=== PATIENT | male | born 1935 | race Caucasian/White ===

== ENCOUNTER 2020-03-04 13:42 | Observation (INO) | payer MEDICARE, BC ==
[~2020-03-04] VITALS: Ht 165.1 cm; Wt 65.0 kg
[~2020-03-04 13:42] MED LIST: ASPIRIN E.C. 8181 MG PO; HYTRIN 2MG CAPSU2 MG PO; LUTEIN 15 MG-0.1 SGL PO; ZANTAC 150MG T150 MG PO; ZOCOR 20MG20 MG PO
[2020-03-04] MEDS ORDERED: PRINIVIL20 MG PO (13:57)
[2020-03-04] MEDS ORDERED: SYNTHROID 0.0.025 MG PO (14:00)
[2020-03-04] MEDS ORDERED: ZEBETA 5MG5 MG PO (14:00)
[2020-03-04 14:18] LABS: COLLECTION METHOD CLEAN CATCH
[2020-03-04 14:21] LABS: BASO # 0.1 (0.0-0.2); BASO % 0.5 % (0.0-2.0); EOS % 0.4 % (0-4.0); GRAN # 8.8 (1.4-6.5); GRAN % 82.7 % (42.2-75.2); HEMOGLOBIN 11.8 g/dl (13.5-18.0); LYMPH # 1.1 (1.2-3.4); LYMPH % 10.5 % (20.0-51.0); MEAN CELL VOLUME 86 fl (80.0-100.0); MEAN CORPUSCULAR HEMOGLOBIN 28 pg (27.0-31.0); MEAN CORPUSCULAR HGB CONC 33 g/dl (33.0-37.0); MEAN PLATELET VOLUME 10.5 fl (7.4-10.4); MONO # 0.6 (0.1-0.6); MONO % 5.6 % (1.7-9.3); PLATELET COUNT 136 K/mm3 (130-400); RED BLOOD COUNT 4.15 M/mm3 (4.20-5.60)
[2020-03-04 14:22] LABS: HEMATOCRIT 35.6 % (42.0-52.0)
[2020-03-04 14:27] LABS: HYALINE CAST >12 /lpf; MUCOUS Present /lpf; PH 6 (5-8); SQUAMOUS EPITHELIAL 0-2 /hpf; URINE APPEARANCE Clear; URINE BACTERIA None Seen /hpf; URINE BILIRUBIN Negative (NEGATIVE); URINE BLOOD 1+ (NEGATIVE); URINE COLOR Yellow; URINE GLUCOSE Negative (NEGATIVE); URINE KETONE Trace (NEGATIVE); URINE LEUKOCYTE ESTERASE Negative (NEGATIVE); URINE NITRATE Negative (NEGATIVE); URINE PROTEIN(semi-quant) Negative (NEGATIVE); URINE RBC 0-2 /hpf
[2020-03-04 14:30] LABS: ALANINE AMINOTRANSFERASE 16 U/L (4-49); ALBUMIN 3.5 gm/dL (3.5-5.0); ALKALINE PHOSPHATASE 40 U/L (50-136); ANION GAP 5 mmol/L (7-16); AST,SGOT 32 U/L (15-37); BILIRUBIN,TOTAL 0.6 mg/dL (0.0-1.0); BLOOD UREA NITROGEN 18 mg/dL (9-20); C-REACTIVE PROTEIN < 0.5 mg/dL (0.0-0.9); CALCIUM 8.3 mg/dL (8.4-10.2); CARBON DIOXIDE 26 mmol/L (22-30); CHLORIDE 104 mmol/L (98-107); CREATININE, serum 1.47 (0.66-1.25); GLUCOSE 92 mg/dL (74-106); POTASSIUM 4.4 mmol/L (3.4-5.0); SODIUM 135 mmol/L (137-145); TOTAL PROTEIN 6.4 gm/dL (6.4-8.2)
[2020-03-04 14:40] LABS: TROPONIN-I < 0.012 ng/mL (0.000-0.035)
[2020-03-04 14:52] VITALS: BP 177/76; PULSE 55
[2020-03-04 18:22] LABS: TROPONIN-I 3 HR POST INITIAL < 0.012 ng/mL (0.000-0.034)
[2020-03-04 18:26] LABS: PROLACTIN 8.9 ng/mL (3.7-17.9)
--- NOTE | 2020-03-04 19:07 | NUR ---
Pt up to room 343, pt is alert, sitting at EOB. Bedside report given to VLADISLAV Cox. LWR INT IV. Pt to have CT, radiology will be up shortly to get patient. Pt on room air, breathing even and unlabored. Pt on tele. Pt stated he had been sitting in wet pants since this morning, episode of incontinence when he had a syncopal episode this morning at home. Provided with briefs and bag for pt to change. Pt requesting food, dietary called, dinner will be delivered. No further concerns at this time.
--- NOTE | 2020-03-04 20:00 | NUR ---
Pt in bed, is alert and oriented x4. Has SL to left forearm without redness or swelling. On telemetry in NSR. Admission questions completed.
--- NOTE | 2020-03-04 20:22 | NUR ---
REPORT GIVEN TO ONCOMING SHIFT.
[2020-03-04 20:40] VITALS: BP 178/61; PULSE 60; TEMP 97.9
--- NOTE | 2020-03-04 22:00 | NUR ---
IVF infusing without problem to left forearm. Neuro checks have been WNL. Denies needs and is ready for bed. Voiding without problem.
[2020-03-05 00:13] VITALS: BP 136/63; PULSE 97; TEMP 98
[2020-03-05 00:31] VITALS: BP 156/63; PULSE 64; TEMP 98.2
--- NOTE | 2020-03-05 04:00 | NUR ---
Has denied feeling dizzy when up this shift. SBA with activity.
[2020-03-05 04:10] VITALS: BP 153/57; PULSE 61; TEMP 98.1
[2020-03-05 05:44] LABS: BASO # 0.1 (0.0-0.2); BASO % 0.7 % (0.0-2.0); EOS # 0.1 (0.0-0.7); EOS % 0.9 % (0-4.0); GRAN # 4.6 (1.4-6.5); GRAN % 68.1 % (42.2-75.2); HEMOGLOBIN 11.4 g/dl (13.5-18.0); LYMPH # 1.3 (1.2-3.4); LYMPH % 19.7 % (20.0-51.0); MEAN CELL VOLUME 86 fl (80.0-100.0); MEAN CORPUSCULAR HEMOGLOBIN 28 pg (27.0-31.0); MEAN CORPUSCULAR HGB CONC 33 g/dl (33.0-37.0); MONO # 0.7 (0.1-0.6); MONO % 10.5 % (1.7-9.3); PLATELET COUNT 143 K/mm3 (130-400); RED BLOOD COUNT 4.07 M/mm3 (4.20-5.60); REDCELL DISTRIBUTION WIDTH-CV 13.1 % (11.5-14.5)
[2020-03-05 05:46] LABS: HEMATOCRIT 35.1 % (42.0-52.0)
[2020-03-05 05:57] LABS: CREATININE, serum 2.19 (0.66-1.25); POTASSIUM 4.1 mmol/L (3.4-5.0)
[2020-03-05 06:09] LABS: TROPONIN-I 0.013 ng/mL (0.000-0.035)
[2020-03-05 06:27] LABS: TSH w REFLEX 2.91 uIU/mL (0.465-4.680)
[2020-03-05 07:59] VITALS: BP 143/50; PULSE 69; TEMP 98.8
--- NOTE | 2020-03-05 08:18 | NUR ---
Pt assessment completed and charted. Medications administered per DEC. Pt sitting in bed, finished breakfast. VSS. Pt denies any pain, dizziness, SOB, N/V/D, abdominal pain. Pt on room air, breathing even and unlabored. Pt on tele, no complications, occasional bradycardia. LFA IV w/ NS@ 75ml/hr running w/o complications. Pt independent in room. No concerns expressed at this time. Call light within reach.
[2020-03-05 11:11] VITALS: BP 138/59; PULSE 56; TEMP 99
--- NOTE | 2020-03-05 11:35 | NUR ---
TRISTA met with the patient to complete intitial intake. The patient lives with his Maureen in [place] with [facility]. The patient has canes at home but does not need them to ambulate. The patient is independent with ADLs. The patient's PCP is Dr. Arrington and patient receives medications from [facility]. The patient does not have advanced directives in the EMR but states they are completed. The patient plans to return home at discharge. There are no additional needs at this time.
[2020-03-05] MEDS ORDERED: ZEBETA 5MG5 MG PO (12:16)
[2020-03-05] MEDS ORDERED: NORVASC 5MG5 MG/TAB PO (12:16)
--- NOTE | 2020-03-05 14:49 | NUR ---
Pt had loop recorder placed to mid chest, covered w/ gauze and paper tape, CDI. Pt denies any pain or dizziness. Discharge instructions discussed and reviewed with patient who verbalized understanding. All questions encouraged and answered. No further needs. LFA INT IV dc'd w/ catheter tip intact. Patient to call to tack picker, will notify staff when ready to be escorted out.
== END 2020-03-05 15:10 | disposition home or self-care (01) ==
LOC: COL.ER 13:42 → SURG 15:04
PROVIDERS: Emergency Medicine; Physician Assistant; ADMIT Hospitalist
DX: R55 Syncope and collapse (principal); R42 Dizziness and giddiness; N17.9 Acute kidney failure, unspecified; I12.9 Hypertensive chronic kidney disease with stage 1 through stage 4 chronic kidney disease, or unspecified chronic kidney disease; N18.3 Chronic kidney disease, stage 3 (moderate); E78.5 Hyperlipidemia, unspecified; H35.30 Unspecified macular degeneration; E03.9 Hypothyroidism, unspecified; I08.0 Rheumatic disorders of both mitral and aortic valves; Z87.891 Personal history of nicotine dependence; Z79.899 Other long term (current) drug therapy; Z88.7 Allergy status to serum and vaccine
CPT/HCPCS: G0378; J1644; J7030

== ENCOUNTER 2020-04-09 11:36 | Day surgery (SDC) | payer BC ==
[2020-04-09] VITALS (12 sets, daily range): BP systolic 132–205; BP diastolic 47–94; PULSE 64–83; TEMP 97.4–98.1
[~2020-04-09] VITALS: Ht 165.1 cm; Wt 62.4 kg
[~2020-04-09 11:36] MED LIST changes: +NORVASC 5MG5 MG/TAB PO; +PRINIVIL20 MG PO; +SYNTHROID 0.0.025 MG PO; +ZEBETA 5MG5 MG PO
[2020-04-09 12:15] LABS: HEMATOCRIT 41.9 % (42.0-52.0); MEAN CELL VOLUME 85 fl (80.0-100.0); MEAN CORPUSCULAR HEMOGLOBIN 28 pg (27.0-31.0); MEAN CORPUSCULAR HGB CONC 33 g/dl (33.0-37.0); MEAN PLATELET VOLUME 11.1 fl (7.4-10.4); PLATELET COUNT 154 K/mm3 (130-400); RED BLOOD COUNT 4.93 M/mm3 (4.20-5.60); REDCELL DISTRIBUTION WIDTH-CV 12.7 % (11.5-14.5)
[2020-04-09 13:08] LABS: CALCIUM 8.9 mg/dL (8.4-10.2); CREATININE, serum 1.67 (0.66-1.25); POTASSIUM 4.7 mmol/L (3.4-5.0)
[2020-04-09 13:24] LABS: PROTHROMBIN TIME 11.7 SECONDS (9.7-12.8)
--- NOTE | 2020-04-09 14:10 | NUR ---
SEE MERGE DOCUMENTATION FOR MEDICATION ADMINISTRATION AND INTRA/POST PROCEDURE SEDATION ASSESSMENTS.
--- NOTE | 2020-04-09 19:19 | NUR ---
Patient arrived to floor at 1545 via stretcher, is at bedside. Respirations are even and nonlabored. Dressings are CDI, ice was applied and apap administered. Patient was given water and sandwich box. He is alert and oriented. Lungs are clear, heart reg, bowel sounds active. Pulses, pedal and radial are +2. Did void in urinal and urine is clear and yellow. Left arm is restricted in a sling. Call light and personal items are within reach.
--- NOTE | 2020-04-09 20:30 | NUR ---
Initial shift assessment done- pacemaker site dressing clean dry and intact, no drainage or bruising noted, loop recorder removal site dressing dry and intact, pt has on left arm slight- also ice to pacemaker site. Denies pain at this time, Tele on. Voiding clear light yellow urine per urinal.Did give an HS snack-
[2020-04-10 03:00] VITALS: BP 129/56; PULSE 62; TEMP 97.5
--- NOTE | 2020-04-10 06:08 | NUR ---
Slept well all night- denies pain, Pacemaker dressing dry, intact/ VSS
--- NOTE | 2020-04-10 07:30 | NUR ---
Received report from offgoing shift. Patient is awake and alert in bed watching TV. Call light and personal items are within reach.
[2020-04-10 07:44] VITALS: BP 138/51; PULSE 60; TEMP 97.9
[2020-04-10] MEDS ORDERED: CEPHALEXIN500 M1 PO ×2 (09:40→11:01)
[2020-04-10] MEDS ORDERED: TYLENOL 325MG325 MG PO (09:41)
--- NOTE | 2020-04-10 12:27 | NUR ---
First visit from the title investigator. No needs right now.
== END 2020-04-10 11:10 | disposition home or self-care (01) ==
LOC: COL.CAR 11:36 → MEDICAL 16:40 → COL.CAR 04-10 11:10
PROVIDERS: Internal Medicine Cardiovascular Disease
DX: I49.5 Sick sinus syndrome (principal); R55 Syncope and collapse; I08.0 Rheumatic disorders of both mitral and aortic valves; I12.9 Hypertensive chronic kidney disease with stage 1 through stage 4 chronic kidney disease, or unspecified chronic kidney disease; N18.9 Chronic kidney disease, unspecified; E78.5 Hyperlipidemia, unspecified; E78.2 Mixed hyperlipidemia; K21.9 Gastro-esophageal reflux disease without esophagitis; Z88.7 Allergy status to serum and vaccine; Z95.818 Presence of other cardiac implants and grafts; Z79.899 Other long term (current) drug therapy
CPT/HCPCS: OP; C1785; C1894; C1898; J0690; J2250; J3010; J7030; Q9967

== ENCOUNTER 2022-06-23 11:01 | Outpatient (CLI) | payer BC ==
[~2022-06-23] VITALS: Ht 165.2 cm; Wt 60.3 kg
[~2022-06-23 11:01] MED LIST changes: +CEPHALEXIN500 M1 PO; +TYLENOL 325MG325 MG PO
[2022-06-23] MEDS ORDERED: NORVASC2.5 MG PO (12:12)
[2022-06-23 12:17] VITALS: BP 160/71; PULSE 77; TEMP 98.2
[2022-06-23 12:37] LABS: CALCIUM 9.1 mg/dL (8.4-10.2); CREATININE, serum 1.92 mg/dL (0.72-1.25); POTASSIUM 4.4 mmol/L (3.5-4.5); PROTHROMBIN TIME 11.9 SECONDS (9.7-12.8)
[2022-06-23 12:55] LABS: BASO % 0.6 % (0.0-2.0); EOS % 0.2 % (0.0-4.0); GRAN # 5.3 K/mm3 (1.4-6.5); GRAN % 83.4 % (42.2-75.2); HEMOGLOBIN 12.1 g/dl (13.5-18.0); LYMPH # 0.4 K/mm3 (1.2-3.4); LYMPH % 5.7 % (20.0-51.0); MEAN CELL VOLUME 87 fl (80.0-100.0); MEAN CORPUSCULAR HEMOGLOBIN 29 pg (27-31); MEAN CORPUSCULAR HGB CONC 33 g/dl (33.0-37.0); MEAN PLATELET VOLUME 10.6 fl (7.4-10.4); MONO # 0.6 K/mm3 (0.1-0.6); MONO % 9.9 % (1.7-9.3); PLATELET COUNT 132 K/mm3 (130-400); RED BLOOD COUNT 4.24 M/mm3 (4.20-5.60); REDCELL DISTRIBUTION WIDTH-CV 13.3 % (11.5-14.5)
[2022-06-23 12:56] LABS: HEMATOCRIT 36.7 % (42.0-52.0)
[2022-06-23 13:15] VITALS: BP 127/70; PULSE 82
--- NOTE | 2022-06-23 13:15 | NUR ---
RECIEVED REPORT FROM JULIEN LOOMIS, PT IS AWAKE AND ALERT, HOB ELEVATED, FAMILY NOW IN ROOM. CALL LIGHT IN REACH, NO C/O, TAKES SPRITE TO DRINK
[2022-06-23 13:30] VITALS: BP 149/71; PULSE 78
[2022-06-23 13:45] VITALS: BP 159/70; PULSE 80
[2022-06-23 14:00] VITALS: BP 145/65; PULSE 79
--- NOTE | 2022-06-23 14:00 | NUR ---
PT TAKES SNACK, SITS UP IN BED, DR STILL TO COME AND SEE PT AND TALK ABOUT RESULTS OF [facility].
--- NOTE | 2022-06-23 15:00 | NUR ---
IV D'CD INTACT, REVIEWED DISCHARGED INST. WITH PT ON ACTIVITY, PRECAUTIONS AND FOLLOWUP WITH VERBAL UNDERSTANDING. PT UP AND DRESSED, DISCHARGED VIA W/C TO CAR WITH FAMILY
== END 2022-06-23 15:00 | disposition home or self-care (01) ==
LOC: COL.RAD 11:01
PROVIDERS: Internal Medicine Cardiovascular Disease
DX: I35.0 Nonrheumatic aortic (valve) stenosis (principal)
CPT/HCPCS: J2704

== ENCOUNTER 2023-12-20 13:26 | Emergency (ER) | payer BC ==
[~2023-12-20] VITALS: Ht 167.6 cm; Wt 59.1 kg
[~2023-12-20 13:26] MED LIST changes: +NORVASC2.5 MG PO
[2023-12-20 13:34] VITALS: TEMP 97.9
[2023-12-20 13:54] LABS: BASO # 0.1 K/mm3 (0.0-0.2); BASO % 0.4 % (0.0-2.0); EOS % 0.3 % (0.0-4.0); GRAN # 10.1 K/mm3 (1.4-6.5); GRAN % 84.5 % (42.2-75.2); HEMATOCRIT 40.3 % (42.0-52.0); HEMOGLOBIN 12.9 g/dl (13.5-18.0); LYMPH # 1.1 K/mm3 (1.2-3.4); MEAN CELL VOLUME 88 fl (80.0-100.0); MEAN CORPUSCULAR HEMOGLOBIN 28 pg (27-31); MEAN CORPUSCULAR HGB CONC 32 g/dl (33.0-37.0); MEAN PLATELET VOLUME 10.8 fl (7.4-10.4); MONO # 0.7 K/mm3 (0.1-0.6); MONO % 5.5 % (1.7-9.3); PLATELET COUNT 151 K/mm3 (130-400); RED BLOOD COUNT 4.56 M/mm3 (4.20-5.60)
[2023-12-20 14:14] LABS: BILIRUBIN,TOTAL 0.5 mg/dL (0.2-1.2); CALCIUM 9.5 mg/dL (8.4-10.2); CREATININE, serum 1.84 mg/dL (0.72-1.25); POTASSIUM 4.3 mmol/L (3.5-4.5); TOTAL PROTEIN 7.1 gm/dL (6.2-8.1)
[2023-12-20] MEDS ORDERED: ZEBETA 5MG5 MG PO (15:41)
[2023-12-20 16:20] VITALS: BP 172/85; PULSE 82
== END 2023-12-20 16:20 | disposition home or self-care (01) ==
LOC: COL.ER 13:26
PROVIDERS: Family Medicine
DX: R55 Syncope and collapse (principal); I35.0 Nonrheumatic aortic (valve) stenosis; I47.20 Ventricular tachycardia, unspecified; N18.9 Chronic kidney disease, unspecified; Z79.899 Other long term (current) drug therapy

== ENCOUNTER 2024-07-09 10:39 | Emergency (ER) | payer BC ==
[~2024-07-09] VITALS: Ht 165.1 cm; Wt 58.6 kg
[2024-07-09 10:39] VITALS: TEMP 97.9
--- NOTE | 2024-07-09 11:09 | NUR ---
Associate Director Financial Aid responded to CAT call in Cardiac Rehab. Patient was brought over to the ED. SW contacted patient's , Maureen who stated she will be on her way.
[2024-07-09 11:11] LABS: BASO # 0.1 K/mm3 (0.0-0.2); BASO % 0.8 % (0.0-2.0); EOS # 0.1 K/mm3 (0.0-0.7); EOS % 1.1 % (0.0-4.0); GRAN # 5.4 K/mm3 (1.4-6.5); GRAN % 74.9 % (42.2-75.2); HEMATOCRIT 37.4 % (42.0-52.0); HEMOGLOBIN 12.1 g/dl (13.5-18.0); LYMPH # 1.1 K/mm3 (1.2-3.4); LYMPH % 15.6 % (20.0-51.0); MEAN CELL VOLUME 86 fl (80.0-100.0); MEAN CORPUSCULAR HEMOGLOBIN 28 pg (27-31); MEAN CORPUSCULAR HGB CONC 32 g/dl (33.0-37.0); MONO # 0.5 K/mm3 (0.1-0.6); MONO % 7.3 % (1.7-9.3); PLATELET COUNT 142 K/mm3 (130-400); RED BLOOD COUNT 4.35 M/mm3 (4.20-5.60); REDCELL DISTRIBUTION WIDTH-CV 14.2 % (11.5-14.5)
[2024-07-09] MEDS ORDERED: NS 500 ML IV ONE (11:15)
[2024-07-09 11:36] LABS: ALBUMIN 3.7 g/dL (3.4-4.8); BILIRUBIN,TOTAL 0.5 mg/dL (0.2-1.2); CALCIUM 8.7 mg/dL (8.4-10.2); CREATININE, serum 1.97 mg/dL (0.72-1.25); POTASSIUM 4.8 mEq/L (3.5-4.5); TOTAL PROTEIN 6.7 g/dl (6.2-8.1)
[2024-07-09 12:28] VITALS: BP 173/79; PULSE 60
== END 2024-07-09 12:39 | disposition home or self-care (01) ==
LOC: COL.ER 10:39
PROVIDERS: Personal Emergency Response Attendant
DX: R55 Syncope and collapse (principal); N28.9 Disorder of kidney and ureter, unspecified
CPT/HCPCS: J7040